=== PATIENT | female | born 1955 | race Two or more races ===

== ENCOUNTER 2023-12-14 07:35 | Day surgery (SDC) | payer MEDICAID ==
[~2023-12-14] VITALS: Ht 152.4 cm; Wt 56.2 kg
[2023-12-14] VITALS (8 sets, daily range): BP systolic 93–124; BP diastolic 64–81; PULSE 56–70; RESP 12–23; O2SAT 94–98
[~2023-12-14 07:35] MED LIST: ASPI-543 PO; ATOR10TA52 PO; LEVO100T8 PO; MAGN400T40 PO; METO25TA93 PO; TRAM50TA2 PO
[2023-12-14] MEDS ORDERED: IODIXANOL 320MG/ML 100ML BTL IV ONE (10:23)
[2023-12-14] MEDS ORDERED: LIDOCAINE 2%HCL (LOCAL ANESTH.) INJ 20ML MDV ONE (10:24)
[2023-12-14] MEDS ORDERED: VERAPAMIL 2.5MG/ML INJ 2ML VIAL IV ONE (10:36)
[2023-12-14] MEDS ORDERED: ANGIOMAX 250 MG VIAL IV ONE (10:36)
[2023-12-14] MEDS ORDERED: HEPARIN SODIUM (PORCINE) 5000 UNITS/ML 1ML VIAL ONE (10:36)
[2023-12-14] MEDS ORDERED: MIDAZOLAM HCL 2MG/2ML 2ml VIAL (1mg/ml) ONE (10:37)
[2023-12-14] MEDS ORDERED: fentaNYL CITRATE 100 MCG/2 ML VL ONE (10:37)
[2023-12-14] MEDS ORDERED: SODIUM CHL 0.9% 0 ML ONE (10:37)
== END 2023-12-14 13:20 | disposition home or self-care (01) ==
LOC: CATH 07:35
PROVIDERS: ATTEND Internal Medicine Cardiovascular Disease
DX: I25.10 Atherosclerotic heart disease of native coronary artery without angina pectoris (principal); E78.5 Hyperlipidemia, unspecified; I25.2 Old myocardial infarction; M81.0 Age-related osteoporosis without current pathological fracture; M06.9 Rheumatoid arthritis, unspecified; Z87.891 Personal history of nicotine dependence; Z79.82 Long term (current) use of aspirin; Z79.899 Other long term (current) drug therapy; Z98.890 Other specified postprocedural states
CPT/HCPCS: 93454; C1769; C1894; J1644; J2250; J3010; J7030; Q9967; 99152; 99153